=== PATIENT | male | born 1960 | race Caucasian/White ===

== ENCOUNTER 2018-11-04 11:16 | Observation (INO) | payer OTHER, SELFPAY ==
--- NOTE | 2018-11-04 12:01 | RAD ---
SINGLE VIEW CHEST: Date: 11/04/18 COMPARISON: None. HISTORY: Weakness and continually passing out. FINDINGS: Single view of the chest shows a normal sized cardiomediastinal silhouette. There is no evidence of c onsolidation, mass, or pleural effusion. The bones are unremarkable. IMPRESSION: No evidence of acute cardiopulmonary disease. POS: [facility]
[2018-11-04] MEDS ORDERED: ISOVUE-370 76%-LOCM 1 ML ONE (12:09)
[2018-11-04 12:12] LABS: #Eosinphils 0.2 thou/uL (0.0-0.7); #Monocytes 0.7 thou/uL (0.11-0.59); #Neutrophils 4.3 thou/uL (1.40-6.50); %Basophils 0.2 % (0.0-1.0); %Eosinophils 3.1 % (0.0-10.0); %Lymphocytes 15.5 % (21.0-51.0); %Monocytes 11.7 % (0.0-10.0); %Neutrophils 69.5 % (42.0-75.0); Mean Corpuscular Hemoglobin 29.1 pg (27.0-31.0); Mean Corpuscular Volume 85.7 fL (78.0-98.0); Mean Platelet Volume 8.3 fL (7.4-10.4); Platelet Count 289 thou/uL (130-400); RBC Distribution Width 12.1 % (11.5-14.5); Red Blood Cell (RBC) Count 5.15 mill/uL (4.70-6.10); White Blood Cell (WBC) Count 6.2 thou/uL (4.8-10.8)
[2018-11-04 12:32] LABS: Acetaminophen Less than 6.0 mcg/mL (10.0-30.0); Alcohol Less than 10 mg/dL (Less than 10); CK (CPK) 30 U/L (30-200); Salicylate Less than 8.0 mg/dL (15.0-30.0)
[2018-11-04 12:33] LABS: ALT (SGPT) 15 U/L (8-55); AST (SGOT) 17 U/L (5-34); Albumin 4.1 g/dL (3.5-5.0); Alkaline Phosphatase 81 U/L (40-110); Anion Gap 14 mmol/L (10-20); BUN (Urea Nitrogen) 13 mg/dL (8.4-25.7); Bilirubin, Total 0.4 mg/dL (0.2-1.2); Calc. Creatinine Clearance 0 mL/min (70-130); Calcium 9.8 mg/dL (7.8-10.44); Carbon Dioxide 25 mmol/L (22-29); Chloride 103 mmol/L (98-107); Estimated GFR-MDRD Greater than 90; Globulin 3.4 g/dL (2.4-3.5); Glucose 96 mg/dL (70-105); Potassium 4.2 mmol/L (3.5-5.1); Protein, Total 7.5 g/dL (6.0-8.3); Sodium 138 mmol/L (136-145)
--- NOTE | 2018-11-04 13:41 | CT ---
Head CT without contrast 11/04/2018: HISTORY: Dizziness TECHNIQUE: Axial CT imaging at 5 mm intervals from vertex through skull base without contrast FINDINGS: The imaged paranasal sinuses and mastoid air cells are well-aerated. No displaced calvarial fracture. No intracranial hemorrhage, midline shift, mass effect, or ventricular enlargement. IMPRESSION: No acute findings.
--- NOTE | 2018-11-04 13:46 | CT ---
Exam: CT ANGIOGRAM OF HEAD CT ANGIOGRAM OF NECK: HISTORY: Dizziness. Evaluate for vertebral artery stenosis/occlusion. Evaluate for vertebral artery i nsufficiency FINDINGS: Postcontrast head CT: Cortical bucio-white matter differentiation is preserved. No hydrocephalus. Intact calvarium. Adequate aeration of the sinuses and mastoid air cells. Bilateral ocular lenses are appropriately located. Both globes are intact. Retrobulbar fat is preserv ed. Nonspecific calcification along the posterior aspect of the left and right globe. Symmetric attenuation of the optic nerves and ocular rectus muscles. Oral cavity: Limited evaluation due to dental amalgam artifact. No obvious masses. Midline fatty raph ae of the tongue is preserved. No mucosal abnormality. Unremarkable epiglottis Symmetric attenuation of the salivary glands. Unremarkable thyroid gland. Symmetric attenuation of sternocleidomastoid muscles and paraspinal muscles. No evidence of lymphadenopathy by size criteria. Cervical spine vertebral body height is maintained. There is no fracture. Varying degrees of central canal stenosis and neural foraminal narrowing on the basis of degenerative change. Mediastinum is unremarkable. Chronic changes in the visualized lung apices. CT ANGIOGRAM: There is appropriate enhancement and luminal diameter with regards to the visualized aortic arch Right carotid: The right carotid artery origin, common carotid artery, carotid bifurcation and internal salesperson al carotid artery have appropriate enhancement and luminal diameter. Left carotid: The left carotid artery origin, common carotid artery, carotid bifurcation and internal carotid artery have appropriate enhancement and luminal diameter. Bilateral cervical vertebral arteries are patent throughout their course in the neck. Left vertebral artery slightly more dominant. Bilateral subclavian arteries are unremarkable CT ANGIOGRAM HEAD: Distal cervical and intracranial internal carotid arteries have appropriate enhancement and luminal d iameter Anterior circulation: Symmetric enhancement and luminal diameter of the A1 and M1 segments. Proximal A2 segments and proximal MCA branches have appropriate enhancement and luminal diameter. Posterior circulation: Bilateral intracranial vertebral arteries have appropriate enhancement and lum inal diameter. Bilateral PICA artery origins are unremarkable. Both vertebral arteries supply a normal appearing basilar artery. Appropriate enhancement and luminal diameter. Bilateral P1 segments have symmetric enhancement and luminal diameter. IMPRESSION: 1. Unremarkable CT angiogram of the neck. No significant stenosis based upon NASCET criteria. 2. Adequate enhancement and luminal diameter of the [place]. No significant stenosis. 3. Appropriate enhancement and luminal diameter of the basilar artery. No evidence of basilar artery stenosis or insufficiency. Transcribed Date/Time: 11/04/2018 1:57 PM
[2018-11-04] MEDS ORDERED: Aspirin Chewable 81 MG TAB ONE (14:31)
[2018-11-04 14:39] LABS: Bilirubin Negative (Negative); Blood, Urine Negative (Negative); Clarity Clear (Clear); Glucose, Urine (Dipstick) Normal (Negative); Leukocyte Negative Leu/uL (Negative); Nitrite Negative (Negative); Protein, Urine (Dipstick) Negative (Neg-Trace); Urobilinogen Normal mg/dL (Less than 2)
[2018-11-04 16:00] LABS: Amphetamine Not Detected (NotDetected); Barbiturates Screen Not Detected (NotDetected); Benzodiazepine Screen Not Detected (NotDetected); Cocaine Metabolite Screen Not Detected (NotDetected); Medtox Control Line Valid? VALID (VALID); Medtox Reader # READER 1; Methadone Not Detected (NotDetected); Methamphetamine Not Detected (NotDetected); Opiate Screen Not Detected (NotDetected); Oxycodone Screen Not Detected (NotDetected); Phencyclidine (PCP) Not Detected (NotDetected); THC/Cannabinoid Screen Not Detected (NotDetected); Tricyclic Screen Not Detected (NotDetected)
--- NOTE | 2018-11-04 16:06 | MRI ---
Brain MRI without contrast: 11/04/2018 COMPARISON: None HISTORY: Dizziness, assess for acute infarction TECHNIQUE: Multiplanar multisequence MR imaging of the brain is obtained without contrast FINDINGS: The diffusion weighted imaging demonstrates no evidence for acute infarction. The imaged paranasal sinuses/mastoid air cells appear well aerated. Arterial flow voids at the axial level of the skull base appear unremarkable on the T2-weighted imagi ng. Regional bone marrow signal intensity appears grossly unremarkable on the sagittal T1 sequence. The axial gradient echo imaging demonstrates no evidence for intracranial hemorrhage. There is no midline shift or mass effect. No ventricular enlargement is seen. There are a few subcent imeter T2/FLAIR hyperintensities within the periventricular white matter suggesting minimal small vessel disease. IMPRESSION: No MR evidence of acute infarction or intracranial hemorrhage.
[2018-11-04] MEDS ORDERED: Meclizine HCl 25 MG TAB ONE (16:34)
[2018-11-04] MEDS ORDERED: Acetaminophen 325 MG TAB PO PRN (16:52)
[2018-11-04] MEDS ORDERED: Ondansetron PF 4 MG/2 ML Vial IVP PRN (16:52)
[2018-11-04] MEDS ORDERED: Ondansetron ODT 4 MG TAB SL PRN (16:52)
[2018-11-04 17:19] VITALS: BMI 26.9
[2018-11-05] MEDS ORDERED: Famotidine 20 MG TAB PO SCH (09:00)
[2018-11-05 15:48] VITALS: BP 139/79; TEMP 98.4
--- NOTE | 2018-11-05 20:04 | CON ---
DATE OF CONSULTATION: 11/05/2018 REASON FOR CONSULTATION: Dizziness and PVCs. HISTORY OF PRESENT ILLNESS: Mr. Patel is a pleasant 58-year-old white gentleman who comes into the hospital for dizziness. He is in construction. He was lying down looking up to a faucet in a position where he had to keep looking up while lying down and looking up to the side. After that, he started feeling severely dizzy and felt like the room was spinning. He had to lie down on the floor and any movement would make him dizzy. He got really nauseated and vomited once. It lasted about 30 minutes and got better. The day after, it happened again, so he decided to come in for evaluation. During his admission, he was placed on monitoring and he has had some PVCs, so Cardiology has been consulted for this. He denies any chest pain, tightness, or pressure. No shortness of breath. No lightheadedness. No syncope, presyncope, PND, or orthopnea. PAST MEDICAL HISTORY: GERD. PAST SURGICAL HISTORY: Left knee surgery. SOCIAL HISTORY: Drinks daily. Positive tobacco use. No drug use. OUTPATIENT MEDICATIONS: Prilosec OTC. ALLERGIES: NO KNOWN DRUG ALLERGIES. FAMILY HISTORY: Noncontributory. REVIEW OF SYSTEMS: A 12-point review of systems was done and was all negative unless stated in the history of present illness. PHYSICAL EXAMINATION: VITAL SIGNS: Temperature 98.0, pulse 68, respiratory rate 20, saturating 95% on room air, blood pressure 139/79, tilt negative. GENERAL: Awake, alert, and oriented x3, in no distress. HEENT: Normocephalic and atraumatic. NECK: Supple. LUNGS: Clear. CARDIOVASCULAR: S1 and S2. No S3 or S4. No murmurs. ABDOMEN: Soft. Positive bowel sounds. EXTREMITIES: No edema. SKIN: Warm and dry. LABORATORY DATA: Laboratory work was reviewed. CBC is unremarkable. Chemistries are unremarkable. Troponins are negative. UA is negative. Toxicology is negative as well. EKG was reviewed; normal sinus rhythm. No ischemic changes. Telemetry was reviewed, isolated PVCs. ASSESSMENT AND PLAN: 1. Dizziness. It sounds like vertigo. I have recommended that he look up Ju maneuvers to try to ablate some of these. Most likely, will be discharged home on meclizine. 2. Premature ventricular contractions, rare for now. We will plan on seeing him back in the office in 1 month. We will do a 24-hour Holter monitor and make sure that his PVC burden is not too high. 3. Echocardiogram was unremarkable with normal LV function. 4. May be discharged home from the cardiac perspective at any point. Thank you for letting us to participate in the care of your patient. We will follow. Job ID: [id number]
[2018-11-05] MEDS ORDERED: Meclizine HCl 25 MG TAB PO SCH (21:00)
--- NOTE | 2018-11-06 01:53 | HP ---
CHIEF COMPLAINT: Dizziness. HISTORY OF PRESENT ILLNESS: Mr. Patel is a 58-year-old male with no significant past medical history, came because of dizziness for 2 days. The patient states whenever he moves he is feeling very dizzy, unable to stand or walk. He did not have any ringing in the ears. No chest pain. No shortness of breath. No nausea or vomiting. It started yesterday when he was working on a cabinet looking up, it lasted for an hour and then went away and then came back again in the morning, so he decided to come into the hospital. In the ER, the patient was evaluated and had CT of the brain as well as CTA of the neck done, unremarkable. The patient is admitted for further evaluation and management. PAST MEDICAL HISTORY: Nothing significant. CURRENT MEDICATIONS: None. FAMILY HISTORY: Nothing contributory. SOCIAL HISTORY: The patient lives with family and drinks almost daily. No history of smoking, but chews tobacco. REVIEW OF SYSTEMS: Unremarkable except dizziness. PHYSICAL EXAMINATION: GENERAL: The patient is alert, awake, oriented x3. VITAL SIGNS: Temperature 98, pulse 60, respiratory rate 20, blood pressure 150/90. HEENT: Head is normocephalic and atraumatic. Pupils are equal and reactive. Nasopharynx is pale and dry. NECK: Supple. No JVD. LUNGS: Bilateral air entry. No rales, no rhonchi. HEART: S1 and S2. Regular. ABDOMEN: Soft. No distention. No tenderness. Normal bowel sounds. RECTAL: Deferred. CENTRAL NERVOUS SYSTEM: Nonfocal. LABORATORY DATA: CBC shows WBC 6, hemoglobin 15, hematocrit 44, platelets 289. Metabolic panel; sodium 138, potassium 4.2, chloride 103, CO2 of 25, urea nitrogen 13, creatinine 0.8, and glucose 96. Urinalysis is negative. Urine drug screen negative. CT of the brain unremarkable. Chest x-ray unremarkable. CT angio neck negative. MRI of the brain also negative. EKG showed normal sinus rhythm, no acute ST-T changes seen. ASSESSMENT: 1. Severe dizziness, rule out cardiac arrhythmia. 2. Hypertension. PLAN: 1. Vital signs q.4 hours. 2. Activities as tolerated. 3. Allergies, NKDA. 4. Diet, regular. 5. Echocardiogram. 6. MRI of the brain. Job ID: [id number]
--- NOTE | 2018-11-07 15:34 | DIS ---
Job ID: [id number]
== END 2018-11-05 20:18 | disposition home or self-care (01) ==
LOC: ERS 11:16 → 2SE 16:58
PROVIDERS: ADMIT Internal Medicine; ATTEND Internal Medicine
DX: R42 Dizziness and giddiness (principal); I10 Essential (primary) hypertension; I25.2 Old myocardial infarction; K21.9 Gastro-esophageal reflux disease without esophagitis; I49.3 Ventricular premature depolarization; F17.290 Nicotine dependence, other tobacco product, uncomplicated; Z79.899 Other long term (current) drug therapy
CPT/HCPCS: 36415; 36416; 70450; 70496; 70498; 70551; 71045; 80053; 80306; 80307; 81003; 82550; 84484; 85025; 93005; 93306; 94760; G0378; J8597; Q9966

== ENCOUNTER 2018-12-08 09:58 | Outpatient (CLI) | payer BC ==
--- NOTE | 2018-12-08 14:53 | PET ---
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 Exam is requested for initial staging. COMPARISON: None. CORRELATION: CT abdomen and pelvis from 11/22/2018. TECHNIQUE: PET scanning with CT attenuation correction was performed from the base of the brain through the prox imal thighs following the intravenous administration of 12 millicuries of F18 fluorodeoxyglucose in t he right antecubital fossa. FINDINGS: Numerous hypermetabolic lymph nodes are seen on both sides of the diaphragm with varying SUVs. These include the left supraclavicular (12.8), left internal mammary (6.3), left paracardiac (3.7), left re trocrural (14.7), right retrocrural (9.5), at the level of the celiac axis (12.3), mesenteric (6.2), periaortic (15.4), left common iliac (17.4), right external iliac (8.6), left external iliac (12.9), deep pelvic (10.7) and lateral to the left psoas muscle at the L5 level (5.2). No hypermetabolic pulmonary nodules or liver, adrenal or skeletal lesions are seen. The CT scan used for attenuation correction demonstrates a moderate sized left pleural effusion and l eft-sided hydronephrosis. No pericardial effusion, right pleural effusion or ascites is seen. There i s colonic diverticulosis. There is physiologic activity in the GI and tracts and in the visualized portions of the brain. IMPRESSION: Findings consistent with viable lymphoma on both sides of the diaphragm. POS: [facility]
== END 2018-12-08 09:59 | disposition home or self-care (01) ==
LOC: PET 09:58
PROVIDERS: ATTEND Internal Medicine Hematology & Oncology
DX: C83.38 Diffuse large B-cell lymphoma, lymph nodes of multiple sites (principal)
CPT/HCPCS: 78815; A9552

== ENCOUNTER 2019-01-24 09:47 | Outpatient (CLI) | payer OTHER ==
--- NOTE | 2019-01-24 10:01 | RAD ---
XR Shoulder Lt 3 View STANDARD HISTORY: Injury, left shoulder pain FINDINGS: No fracture or dislocation is identified.
== END 2019-01-24 09:48 | disposition home or self-care (01) ==
LOC: RAD-FRANK 09:47
PROVIDERS: ATTEND Internal Medicine
DX: S49.92XA Unspecified injury of left shoulder and upper arm, initial encounter (principal)